=== PATIENT | male | born 2000 | race Caucasian/White ===

== ENCOUNTER 2018-11-24 11:48 | Emergency (ER) | payer SELFPAY ==
[~2018-11-24] VITALS: Ht 188 cm; Wt 74.8 kg
== END 2018-11-24 13:26 | disposition home or self-care (01) ==
LOC: ED 11:48
DX: S06.0X9A Concussion with loss of consciousness of unspecified duration, initial encounter (principal); S16.1XXA Strain of muscle, fascia and tendon at neck level, initial encounter; Z88.5 Allergy status to narcotic agent; Z88.8 Allergy status to other drugs, medicaments and biological substances; W51.XXXA Accidental striking against or bumped into by another person, initial encounter; Y93.64 Activity, baseball
CPT/HCPCS: 70450; 72125; 99284-25